=== PATIENT | female | born 1985 | race Caucasian/White ===

== ENCOUNTER → 2021-04-21 | Outpatient (CLI) | payer OTHER, SELFPAY ==
--- NOTE | 2021-04-21 14:00 | EMB_PTH ---
PATIENT: DOUG HODGES LOC: [facility] U#:[id number] AGE/SX: 35/F ROOM: RE04/21/[address]: Dr. Jose Luis Snyder MD : 1985 BED: DIS: 04/21/2021 SPEC #: [id number] RECD: 04/22/21 11:36 STATUS: LEANDRO KITTY #: [id number] MAURA: 04/21/21 14:[address]: Jose Luis Snyder DEPT: SURGICAL PATHOLOGY RECD BY: Radha Barbosa Tissues: Endometrium, NOS Procedures: Surgery Specimen Level IV HEADER OPERATION: Endometrial biopsy PRE-OP DIAGNOSIS: N92.0 TISSUE SUBMITTED: Endometrial biopsy MICROSCOPIC DIAGNOSIS Endometrial biopsy: Proliferative endometrium, blood and mucous. SJ:tracie 04/23/2021 MICROSCOPIC DESCRIPTION Slides are reviewed. GROSS DESCRIPTION Received in fixative is one container labeled with the patient's name and designated EM biopsy. The specimen consists of multiple fragments of hemorrhagic mucoid tissue mixed with timmons mucoid tissue that in aggregate measure 2 x 1.5 x 0.2 cm. The specimen is totally submitted in one cassette. / SJ:tracie 04/22/21 TC:4 CPT: 94353
[2021-04-28 11:09] LABS: HPV Reflexed? NOT INDICATED
== END | disposition home or self-care (01) ==
PROVIDERS: Visit Provider Obstetrics & Gynecology
DX: N92.0 Excessive and frequent menstruation with regular cycle (principal); Z12.4 Encounter for screening for malignant neoplasm of cervix
CPT/HCPCS: 88175; 88305; G0145

== ENCOUNTER 2021-05-15 05:52 | Day surgery (SDC) | payer OTHER, SELFPAY ==
--- NOTE | 2021-05-14 18:31 | HP.PCM_ITS ---
History and Physical Date of Admission: 05/15/21 Surgical History and Physical Latosha Damian, a 35 year old female 2 1 2 0 3, presents for HTA, Hysteroscopy and D and C on May 15, 2021 at 7:30. -- Menorrhagia -- heavy menses which began years ago. Latosha claims it started gradually It occurs with menses. It is located in the vagina. Severity is intolerable; It is relieved by OCPs help. Associated signs and symptoms are had tubal and doesn't want to take OCPs. Additional comments are: Pelvic u/s yesterday was normal. Endometrial biopsy was benign. MEDICATIONS HISTORY: Patient is also takin. levothyroxine 75 mcg tablet, One pill by mouth once a day ALLERGIES: Tapazole, Hives and/or rash Infections - Chicken pox Illnesses - Hypothyroidism, HTN Accidents - None Hospitalizations - surgery Review of Systems: GENERAL - Denies fever, or chills SKIN - Denies skin changes EYES - Denies visual changes EARS - Denies difficulty hearing NOSE - Denies nasal congestion or bleeding MOUTH - Denies sore throat or difficulty swallowing NECK - Denies pain or swelling RESPIRATORY - Denies shortness of breath or wheezing CARDIOVASCULAR - Denies palpitations or chest pain GASTROINTESTINAL - Denies nausea, vomiting, diarrhea, constipation GENITOURINARY - Denies dysuria, frequency of urination, incontinence of urine MUSCULOSKELETAL - Denies joint or muscle pain NEUROLOGICAL - Denies localized numbness or weakness PSYCHIATRIC - Denies depression or anxiety ENDOCRINE - Denies heat or cold intolerance, weight loss or gain HEMATO-IMMUNOLOGIC - Denies excesive bleeding with cuts SOCIAL HISTORY: Alcohol Use - None Smoking - Never Diet - no special diet Lifestyle - moderate stress lifestyle and Exercise - active Seat Belt Use - always Employer - [employer] Job Description - sales engineer Illicit Drug Use - None Sexual Activity - Spouse-Sig Other Name - [place] Spouse-Sig Other Occupation - Stay at home father Children Name(s) - 3 children Control - Prior Tubal FAMILY HISTORY: MENSTRUAL HISTORY: LMP Known?- DefiniteAmount/Duration - 5 days, Regularity - Regular, Frequency - 21 to 26 days, LMP - 05/10/21, Age Onset Menarche - 10 PAST PREGNANCIES: Total Pregnancies - 5; Full Term Pregnancies - 2; Premature - 1; Abortions, Induced - 0; Abortions, Spontaneous - 2; Ectopics - 0; Multiple Births - 0; Living Children - 3 SURGICAL HISTORY: 1. 04/29/2007 2. 05/14/2010 3. 12/02/2020 , Tubal 4. 1993 (R) Knee Arthoscopy 5. 1998 (R) Knee Arthoscpy 6. 06/2012 Breast Reduction/Abdominoplasty 7. T and A, 11/17/13 8. 07/21/2019 D and C PHYSICAL EXAM BP- 128/86 Sitting, Left arm, regular cuff Pulse- 70 Regular Weight- 206.0 lbs Height- 66 inch BMI:33.32 CONSTITUTIONAL - NAD, well nourished, and well developed NEUROLOGICAL - Cranial nerves II-XII grossly intact PSYCHIATRIC - A and O to time, place, person, mood and affect External Genitial Vagina - non-tender without lesions Urethra/Urethral Meatus - non-tender Bladder - non-tender Vagina - vaginal garnica are pink and moist without loss of rugae and no evidence of atropy Cervix - without cervical motion tenderness and has normal size and features wi thout evident lesions Uterus - 5-6 cm in size, mobile and nontender Adnexa - clear without massess or tenderness ASSESSMENT/PLAN: 1. Premenopause Menorrhagia EMBx results benign. Discussed options for treatment and if benign pt desires to proceed with H/S, D and C and HTA. Discussed RBAs and all questions answered.
[2021-05-15 06:31] VITALS: BP 156/100; PULSE 62; RESP 16; TEMP 36.6; O2SAT 100; BMI 33.3
[2021-05-15] MEDS: Lactated Ringers 1,000 ML 100 ML IV ×2 (06:37→08:20)
--- NOTE | 2021-05-15 07:23 | PCM.OPRPT ---
Report of Operation Date of Procedure: 05/15/21 Pre-Operative Diagnosis: Menorrhagia Post-Operative Diagnosis: Menorrhagia Surgery/Procedure Performed:: Diagnostic Hysteroscopy, Dilation and Curettage, Hydrothermal Ablation Description of Surgical Findings:: 8 cm endometrial cavity without polyps or fibroids present. Surgeon: Jose Luis Snyder Type of Anesthesia: General (LMA) Anesthesiologist: Drake Guthrie Estimated Blood Loss (mL): Minimal Fluids Replaced: Crystalloid Description of Procedure: Indication: This is a 35 year old patient who has been having problems with extremely heavy menses. Conservative measures have not been helpful. Endometrial sampling was benign and pelvic ultrasound showed that ablation may be helpful. Pt has been counseled regarding the risks, benefits and alternatives of this procedure and all questions answered. She understands that only about half of patients will have amenorrhea after this procedure. Procedure: Patient taken to the operating room where after induction of general anesthesia the patient was prepped and draped in the usual sterile fashion. Bladder was drained of urine with a catheter. Anterior cervix grasped and cervix was dilated to about 17 Spanish size. Hysteroscopic hydrothermal ablation (HTA) unit was place in the cervix and the above findings were noted. HTA unit was removed and the uterus was gently curetted removing all contents. An HTA ablation cycle was then carried out at about 90 degrees Centigrade for 10 minutes with virtually no fluid loss during the procedure. After an appropriate cool down the HTA unit was removed with minimal bleeding noted. The patient tolerated the procedure well and was taken to the recovery room in satisfactory condition. Sponge, instruments and needle counts were all correct. There were no apparent complications of the surgery. Cefotan 2 gms IV was given prior to the procedure. Specimen to Pathology: Endometrial Curettings Grafts/Implants Used: None Complications None Admit VTE Documentation VTE Present on Admission: Yes VTE Mechan Device Prophylaxis: SCD's
--- NOTE | 2021-05-15 07:26 | PCM.DC ---
Discharge Instructions Diet Discharge Diet: No restrictions Activity Discharge Activity: Return to Normal Activity, May Shower and May Take a Tub Bath May resume sexual activity in: 3 weeks Additional Activity Instructions:: Nothing in the vagina for 3-4 weeks please. Use Ibuprophen 800 mg orally every 8 hours as needed for pain. Can also add Tylenol 1000 mg every 8 hours if needed for pain. If Ibuprophen and Tylenol are not effective then use the Oxycodone but keep in mind it can cause serious constipation issues. Drink lots of water. Call if bleeding more than a pad per hour. Clear to brownish discharge will last for about 3 weeks. Dressing / Incision Call your doctor if you observe: Fever of 101 or Higher, Inability to urinate, Inability to have a bowel movement and Using more than 1 pad per hour Follow Up Care Please Follow Up With: Jose Luis Snyder MD When: 3 to 4 weeks Test Results: Test results from this visit will be discussed in further detail at your follow-up appointment, if applicable. Discharge Plan Admission Primary Reason for Your Visit: Endometrial Ablation Attending Provider: Jose Luis Snyder Primary Care Provider: Ema Lobo Discharge Orders/Prescriptions Prescriptions: New oxycodone 5 mg capsule 5 mg PO Q6H PRN (Reason: pain) 7 Days Qty: 7 RF: 0 Continued multivitamin Tablet 1 tab PO DAILY RF: 0 levothyroxine 75 mcg Tablet 75 mcg PO DAILY RF: 0 Referrals / Follow Up: Ema Lobo PA [Primary Care Provider] - Disposition Disposition (needs filled in before D/C Order can be placed): Home, self care
[2021-05-15] MEDS: Cefotetan 2 GM in 0.9% NS 100 ML IV (07:30)
--- NOTE | 2021-05-15 07:30 | EMB_PTH ---
PATIENT: DOUG HODGES LOC: [facility] [place] U#:[id number] AGE/SX: 35/F ROOM: RE05/15/[address]: Dr. Jose Luis Snyder MD : 1985 BED: DIS: 05/15/2021 SPEC #: [id number] RECD: 05/15/21 11:10 STATUS: LEANDRO KITTY #: [id number] MAURA: 05/15/21 07:[address]: Jose Luis Snyder DEPT: SURGICAL PATHOLOGY RECD BY: Yanique Otoole ENTERED: 05/15/21 11:46 SP TYPE: ENDOM BX/C OT DR: ARNALDO Livingston Tissues: Endometrium, NOS Procedures: Surgery Specimen Level IV HEADER OPERATION: Hysteroscopy, D & C hydroablation PRE-OP DIAGNOSIS: Premenopause menorrhagia TISSUE SUBMITTED: Endometrial curettings MICROSCOPIC DIAGNOSIS Endometrium, curettings: Proliferative endometrium with focal stromal and glandular breakdown. AM:tracie 05/18/2021 MICROSCOPIC DESCRIPTION Slides are reviewed. GROSS DESCRIPTION Received in fixative is one container labeled with the patient's name and designated endometrial curettings. The specimen consists of multiple fragments of hemorrhagic soft tissue that in aggregate measure 3 x 2.5 x 0.3 cm. The specimen is totally submitted in one cassette. / TONYA:tracie 05/15/21 TC:5 [facility]: [id number]
[2021-05-15 08:20] VITALS: BP 147/97; BP 156/100; PULSE 84; RESP 16; TEMP 36.5; O2SAT 98
[2021-05-15 08:30] VITALS: BP 136/93; BP 156/100; PULSE 73; RESP 16; O2SAT 98
[2021-05-15 08:41] VITALS: BP 143/87; BP 156/100; PULSE 73; RESP 16; TEMP 36.3; O2SAT 99
[2021-05-15 09:18] VITALS: BP 148/91; BP 156/100; PULSE 55; RESP 16; TEMP 36.2; O2SAT 100
[2021-05-15 09:39] VITALS: BP 156/100
== END 2021-05-15 09:41 | disposition home or self-care (01) ==
LOC: SDC 05:57 → AC 05:59
PROVIDERS: PCP Physician Assistant; Referring Provider Obstetrics & Gynecology; Visit Provider Obstetrics & Gynecology
PROC: 0U5B8ZZ Destruction of Endometrium, Via Natural or Artificial Opening Endoscopic (ICD-10-PCS; CPT 58563; principal; 2021-05-15 07:15)
DX: N92.4 Excessive bleeding in the premenopausal period (principal); E03.9 Hypothyroidism, unspecified; E11.9 Type 2 diabetes mellitus without complications; M19.90 Unspecified osteoarthritis, unspecified site; Z86.2 Personal history of diseases of the blood and blood-forming organs and certain disorders involving the immune mechanism; Z79.899 Other long term (current) drug therapy
CPT/HCPCS: 00952; 58563; 86850; 86900; 86901; 88305; J7120; J2405

== ENCOUNTER 2023-03-31 11:54 | Day surgery (SDC) | payer OTHER, SELFPAY ==
--- NOTE | 2023-03-23 16:58 | RAD_ITS ---
STUDY: X-RAY - ABDOMEN/PELVIS REASON FOR EXAM: Female, 37 years old. R KIDNEY STONE TECHNIQUE: Two AP supine views of the abdomen and pelvis. COMPARISON: None. FINDINGS: Normal visualized lung bases. There is an unremarkable bowel gas pattern. There is no demonstrated free abdominal air. The visualized liver, spleen and kidneys are grossly normal in size and morphology. Normal soft tissue structures. Normal visualized osseous structures. RAD/Abdomen Single View IMPRESSION: No evidence of acute abdominal process. Prominent stool within the descending colon. No evidence of definitive nephrolithiasis. If clinical suspicion of kidney stone recommend cross-sectional CT imaging. Electronically Signed: Dejuan Trinh DO at 17:30 EDT ,
[2023-03-31 12:27] VITALS: BP 124/81; PULSE 60; RESP 16; TEMP 36.7; O2SAT 100; BMI 23.1
[2023-03-31] MEDS: Lactated Ringers 1,000 ML 15 ML IV (12:34)
[2023-03-31] MEDS: Cefazolin 2 GM in 0.9% Normal Saline 100 ML IV (14:35)
--- NOTE | 2023-03-31 14:46 | DCINST_ITS ---
Discharge Instructions Diet Discharge Diet: No restrictions Activity Discharge Activity: Return to Normal Activity Dressing / Incision Call your doctor if you observe: Fever of 101 or Higher, Inability to urinate and Inability to have a bowel movement Follow Up Care Please Follow Up With: Samantha Moya MD When: 2 to 3 weeks with a KUB, call for appointment Test Results: Test results from this visit will be discussed in further detail at your follow- up appointment, if applicable. Discharge Plan Admission Attending Provider: Samantha Moya Primary Care Provider: Ema Lobo Discharge Orders/Prescriptions Prescriptions: New oxycodone-acetaminophen [Percocet] 5-325 mg tablet 1 tab PO Q8H PRN (Reason: pain) 3 Days Qty: 10 0RF cephalexin [cephalexin] 500 mg capsule 500 mg PO Q12 3 Days Qty: 6 0RF Continued multivitamin Tablet 1 tab PO DAILY levothyroxine 75 mcg Tablet 75 mcg PO DAILY Dupixent Pen 300 mg/2 mL pen injector See Rx Instructions .ROUTE .COMPLEX Rx Instructions: ONE INJECTION EVERY 2 WEEKS Wegovy 0.5 mg/0.5 mL Pen Injector 0.5 mg SUBCUT QWEEK Rx Instructions: administer weeks 5 through 8 of therapy Referrals / Follow Up: Ema Lobo PA [Primary Care Provider] - Disposition Disposition (needs filled in before D/C Order can be placed): Home, Self Care
--- NOTE | 2023-03-31 14:49 | OP.PCM_ITS ---
Report of Operation Date of Procedure: 03/31/23 Pre-Operative Diagnosis: Right renal calculus Post-Operative Diagnosis: Same Surgery/Procedure Performed:: Right renal extracorporal shockwave lithotripsy Surgeon: Samantha Moya Type of Anesthesia: General Description of Procedure: The patient is a 37-year-old female found to have a large right renal calculus and now presents for surgical intervention. She was taken to the operating room and placed on the lithotripsy table. Anesthesia monitored the head, neck, airway, IV access and vital signs throughout the case. Once anesthesia was delmy ropriately administered, the patient was appropriately aligned with the lithotripter and the stone was easily identified. 3000 shocks were applied to the stone which appeared to be well fragmented at the conclusion of the case. At this time the patient was awakened and taken to the recovery room in good condition. There were no complications during this procedure. Complications None Admit VTE Documentation VTE Present on Admission: Yes VTE Mechan Device Prophylaxis: SCD's VTE Pharm Prophylaxis ordered?: No Reason prophylaxis not ordered:: Treatment Not Indicated
[2023-03-31 15:32] VITALS: BP 124/81; BP 128/86; PULSE 75; RESP 16; TEMP 36.1; O2SAT 98
[2023-03-31 15:41] VITALS: BP 124/81; BP 146/88; PULSE 58; RESP 16; O2SAT 100
[2023-03-31 16:00] VITALS: BP 124/81; BP 140/89; PULSE 58; RESP 16; O2SAT 100
[2023-03-31 16:15] VITALS: BP 124/81; BP 142/85; PULSE 55; RESP 16; TEMP 36.5; O2SAT 100
[2023-03-31 16:43] VITALS: BP 124/81
== END 2023-03-31 17:18 | disposition home or self-care (01) ==
LOC: SDC 11:56 → AC 11:56
PROVIDERS: PCP Physician Assistant; Referring Provider Urology; Visit Provider Urology
PROC: (CPT 50590; principal; 2023-03-31 13:15)
DX: N20.0 Calculus of kidney (principal); E03.9 Hypothyroidism, unspecified; Z98.51 Tubal ligation status; Z87.442 Personal history of urinary calculi
CPT/HCPCS: 50590; 00873; 74018; J7120; J2405

== ENCOUNTER → 2023-04-21 | Outpatient (CLI) | payer OTHER, SELFPAY ==
--- NOTE | 2023-04-21 12:56 | RAD_ITS ---
EXAM: XR ABDOMEN, 1 VIEW CLINICAL INDICATION: KUB- KIDNEY CALCULUS TECHNIQUE: Frontal supine view of the abdomen/pelvis. COMPARISON: No relevant prior studies available. FINDINGS: LOWER THORAX: No acute pathology. INTRAPERITONEAL SPACE: No evidence of organomegaly or ascites. GASTROINTESTINAL TRACT: Moderate stool in the proximal two thirds of the colon, minimal bowel gas in the pelvis. Prominent segment of small bowel gas in the left upper quadrant may be within redundant sigmoid. Mild gastric air bubble. No dilated small bowel loops. ORGANS: Unremarkable as visualized. No organomegaly. No abnormal calcifications. BONES/JOINTS: No acute pathology. SOFT TISSUES: Bilateral tubal ligation clips project over the pelvis. RAD/Abdomen Single View IMPRESSION: 1. Prominent colon contents, especially stool in the proximal two thirds of the colon. Suspected additional moderate colon gas in the left upper quadrant. No dilated small bowel. 2. Stool obscures optimal visualization of the expected regions of the kidneys but no obvious stones are evident. Electronically Signed: Miguelina Kumar MD at 6:45 EDT ,
== END | disposition home or self-care (01) ==
LOC: MTRAD 12:55
PROVIDERS: PCP Physician Assistant; Referring Provider Urology; Visit Provider Urology
DX: N20.0 Calculus of kidney (principal)
CPT/HCPCS: 74018